=== PATIENT | female | born 1960 | race Two or more races ===

== ENCOUNTER 2020-11-07 10:00 | Inpatient (IN) | payer OTHER ==
[~2020-11-07] VITALS: Ht 149.9 cm; Wt 68.9 kg
[2020-11-07] MEDS ORDERED: SYNTHROID50 MCG PO (10:08)
[2020-11-14] MEDS ORDERED: ATORVASTATIN CA20 MG (14:14)
[2020-11-17] MEDS ORDERED: HYOSCYAMINE0.125 M1 SL (13:30)
[2020-11-17] MEDS ORDERED: OXYC1TAB9 PO (13:30)
== END 2020-11-17 14:02 | disposition home or self-care (01) | DRG 331 ==
LOC: O/R 11-14 07:42 → SURG 11-14 07:42 → SURH 11-14 10:00 → SURG 11-14 18:45
PROVIDERS: ADMIT Surgery; ATTEND Surgery
PROC: 07BC4ZX Excision of Pelvis Lymphatic, Percutaneous Endoscopic Approach, Diagnostic (ICD-10-PCS; 2020-11-14)
PROC: 0DTF4ZZ Resection of Right Large Intestine, Percutaneous Endoscopic Approach (ICD-10-PCS; principal; 2020-11-14 18:15)
DX: D12.2 Benign neoplasm of ascending colon (principal); E03.9 Hypothyroidism, unspecified; E66.9 Obesity, unspecified

== ENCOUNTER 2020-11-21 16:46 | Emergency (ER) | payer OTHER ==
[~2020-11-21] VITALS: Ht 152.4 cm; Wt 61.2 kg
[~2020-11-21 16:46] MED LIST: ATORVASTATIN CA20 MG; HYOSCYAMINE0.125 M1 SL; OXYC1TAB9 PO; SYNTHROID50 MCG PO
[2020-11-21] MEDS ORDERED: BACTRIM DS TAB1 EACH PO (19:54)
== END 2020-11-21 20:04 | disposition home or self-care (01) ==
LOC: ER 16:46
DX: L08.89 Other specified local infections of the skin and subcutaneous tissue (principal); B96.29 Other Escherichia coli [E. coli] as the cause of diseases classified elsewhere; N39.0 Urinary tract infection, site not specified; Z20.822 Contact with and (suspected) exposure to COVID-19

== ENCOUNTER 2020-12-18 09:59 | Emergency (ER) | payer OTHER ==
[~2020-12-18] VITALS: Ht 147.3 cm; Wt 63.0 kg
[~2020-12-18 09:59] MED LIST changes: +BACTRIM DS TAB1 EACH PO
== END 2020-12-18 16:17 | disposition home or self-care (01) ==
LOC: ER 09:59
DX: L08.89 Other specified local infections of the skin and subcutaneous tissue (principal); D12.6 Benign neoplasm of colon, unspecified; E03.8 Other specified hypothyroidism; R10.84 Generalized abdominal pain; K57.90 Diverticulosis of intestine, part unspecified, without perforation or abscess without bleeding; K59.09 Other constipation; Z03.818 Encounter for observation for suspected exposure to other biological agents ruled out

== ENCOUNTER 2022-04-30 06:00 | Day surgery (SDC) | payer OTHER ==
[~2022-04-30] VITALS: Ht 149.9 cm; Wt 68.0 kg
[2022-04-30] MEDS ORDERED: NEURONTIN600 M1 PO (10:40)
[2022-04-30] MEDS ORDERED: POLY119PG PO (10:40)
[2022-04-30] MEDS ORDERED: PERCOCET 5-3251 EACH PO (10:40)
== END 2022-04-30 13:35 | disposition home or self-care (01) ==
LOC: CIR.AMB 06:00
PROVIDERS: ATTEND Surgery
DX: K43.0 Incisional hernia with obstruction, without gangrene (principal); Z88.0 Allergy status to penicillin; Z20.822 Contact with and (suspected) exposure to COVID-19; E03.9 Hypothyroidism, unspecified; G43.909 Migraine, unspecified, not intractable, without status migrainosus